=== PATIENT | female | born 1965 | race Caucasian/White ===

== ENCOUNTER → 2018-01-25 16:28 | Outpatient (CLI) | payer BC, SELFPAY ==
--- NOTE | 2018-01-25 | XR_ITS ---
XR ankle LT min 3V HISTORY: ITS.REASON: PAIN IN ANKLE JOINT AND FOOT ORDERING PHYSICIAN: Cayetano Davis MD PATIENT AGE: 52 years COMPARISON: 03/04/2015 FINDINGS: No fracture or dislocation. No lytic or blastic change. There is normal mineralization.. The joint spaces are well-preserved. No significant degenerative/arthritic changes. No erosive changes evident. Incidentally noted is a lucency involving the distal aspect of the first metatarsal medially and may be due to a subarticular cyst or an old lesion from gout having a similar appearance on previous exam IMPRESSION: 1. No acute finding. 2. Small well-circumscribed lucent lesion of the distal first metatarsal medially
== END ==
PROVIDERS: PCP Internal Medicine Adolescent Medicine; Visit Provider Internal Medicine Adolescent Medicine
DX: M25.572 Pain in left ankle and joints of left foot (principal)
CPT/HCPCS: 73610

== ENCOUNTER → 2018-03-28 13:19 | Outpatient (CLI) | payer BC, SELFPAY ==
--- NOTE | 2018-03-28 13:26 | XR_ITS ---
XR foot LT min 3V, XR ankle LT min 3V Ordering Physician: Cayetano Davis MD Patient Age: 53 years: Female HISTORY: ITS.REASON: LT FOOT PAIN, LT ANKLE INSTABILITY TECHNIQUE: Left foot 3 views Left ankle 3 views COMPARISON :01/25/2018 left ankle radiograph 03/04/2015 left foot radiograph MRI of left foot 06/15/2016 ======= LEFT FOOT 3 VIEWS No fracture no acute findings... Mild hallux valgus deformity again noted similar to thousand 15. Small lucent cystic area noted at the mid portion calcaneus on 2014 plain film and subsequent MR studies is again observed and appear stable Metatarsals appear intact otherwise. The toes appear satisfactory. Tarsals unremarkable.. ========= LEFT ANKLE 3 VIEWS Ankle shows no change since prior studies from January 2018 nor February 2015 exam. Ankle mortise well-maintained normal talus intact. Distal tibia and fibula unremarkable. Subtalar region satisfactory on plain film review IMPRESSION: Left foot and ankle appear stable when compared to studies dating back to 2014 No discrete new findings. Joint spaces well-maintained Minor hallux valgus deformity left foot again noted and similar to 2015 Minor observations including the small stable cystic area at the calcaneus again noted
== END ==
PROVIDERS: PCP Internal Medicine Adolescent Medicine; Visit Provider Internal Medicine Adolescent Medicine
DX: M79.672 Pain in left foot (principal); M25.372 Other instability, left ankle
CPT/HCPCS: 73610; 73630

== ENCOUNTER → 2018-04-05 15:24 | Outpatient (CLI) | payer BC, SELFPAY ==
--- NOTE | 2018-04-05 15:28 | XR_ITS ---
XR foot wt bearing RT 3V HISTORY: Right foot pain ITS.REASON: PAIN ORDERING PHYSICIAN: Eloisa Artis DPM PATIENT AGE: 53 years COMPARISON: Left foot same date FINDINGS: There is mild hallux valgus. The tarsal bones metatarsals and phalanges all appear intact the plantar arch is normal and the soft tissues are normal.. The joint spaces are well-preserved. No significant degenerative/arthritic changes. No erosive changes evident. IMPRESSION: Mild hallux valgus otherwise negative right foot
--- NOTE | 2018-04-05 15:28 | XR_ITS ---
XR foot wt bearing LT 3V HISTORY: ITS.REASON: PAIN ORDERING PHYSICIAN: Eloisa Artis DPM PATIENT AGE: 53 years COMPARISON: Right foot same date FINDINGS: No fracture or dislocation. No lytic or blastic change. There is normal mineralization.. There is very mild hallux valgus less than on the right side. The joint spaces are well-preserved. No significant degenerative/arthritic changes. No erosive changes evident. IMPRESSION: Mild hallux valgus otherwise negative left foot
--- NOTE | 2018-04-05 15:28 | XR_ITS ---
XR ankle wt bearing RT min 3V HISTORY: Right ankle pain ITS.REASON: PAIN ORDERING PHYSICIAN: Eloisa Artis DPM PATIENT AGE: 53 years Comparison: FINDINGS: No fracture or dislocation. No lytic or blastic change. There is normal mineralization.. The ankle mortise appears normal.-.. No significant degenerative/arthritic changes. No erosive changes evident. Comparison made to the left ankle same date. IMPRESSION: Negative ankle, no acute finding
--- NOTE | 2018-04-05 15:28 | XR_ITS ---
XR ankle wt bearing LT min 3V Ordering Physician: Eloisa Artis DPM Patient Age: 53 years: Female HISTORY: ITS.REASON: PAIN TECHNIQUE: Weightbearing images 3 views left ankle 3 views right ankle COMPARISON :Left ankle jan 25 2018 also a June 2008 study available left ankle ======= 3 VIEWS LEFT ANKLE weightbearing Weightbearing images of the left ankle demonstrate the ankle mortise to be intactWell-maintained,. Dome talus appears satisfactory. Medial, lateral and posterior malleolus intact. No significant soft tissue swelling or findings. Perhaps mild Pes planus on lateral view Compared to the January 25, 2018 left ankle I see no significant new findings 3 VIEWS RIGHT ANKLE weightbearing Weightbearing images of right ankle demonstrate the ankle mortise to be intactWell-maintained,. Dome talus appears satisfactory. Medial, lateral and posterior malleolus intact. No significant soft tissue swelling or findings. Perhaps mild Pes planus on lateral view Both right and left ankle demonstrates some very mild sclerosis along the medial margin of the distal fibula where it articulates with the lateral aspect talus.. Subtle finding unchanged since studies of the left ankle dating back to 2007 IMPRESSION: Right and left ankle appear intact
== END ==
PROVIDERS: PCP Internal Medicine Adolescent Medicine; Visit Provider Podiatrist
DX: M79.673 Pain in unspecified foot (principal); M76.822 Posterior tibial tendinitis, left leg
CPT/HCPCS: 73610; 73630

== ENCOUNTER → 2018-07-27 14:39 | Outpatient (CLI) | payer BC, SELFPAY ==
--- NOTE | 2018-07-27 14:41 | MR_ITS ---
MR ankle LT wo/w con HISTORY: Persistent left ankle pain and swelling following injury ITS.REASON: left ankle pain/instability ORDERING PHYSICIAN: Eloisa Artis DPM PATIENT AGE: 53 years Comparison: 06/15/2016 what angle of mediastinal and hilar TECHNIQUE: Standard multiplanar multiecho sequences are performed without and with gadolinium enhancement. FINDINGS: There is a small cyst once again noted just beneath the angle of Gissane of the calcaneus measuring 10 mm. A small amount of edema is present along the superior and posterior aspect of the cyst. This may represent a ganglion cyst of the calcaneus. There is some increased T2 signal involving the posterior and superior aspect of the calcaneus near the Achilles insertion and may represent a an additional small cyst. This is slightly larger compared to the previous exam measuring approximately 6 mm previously at 3 mm. Previously fluid was noted at the lateral aspect of the subtalar joint. This has improved. Only a small amount of fluid signal remains at this area. There is fluid signal along the anterior aspect and lateral aspect of the ankle joint along the anterolateral aspect of the tibia and posterior to the extensor digitorum longus. The anterior tibiofibular and posterior tibiofibular ligaments appear intact as does the anterior talofibular ligament. The fibers of the posterior talofibular ligament are less well demonstrated than before with some fluid signal in this area's consistent with partial tear and/or sprain of the posterior talofibular ligament. There is some increased signal intensity of the peroneal longus and brevis tendons distally which may be due to tendinopathy/tendinosis as previously described versus magic angle artifact. Fluid signal intensity once again noted at the extensor digitorum longus and extensor hallucis longus tendons with questionable tear of the extensor digitorum longus. As not significant changed and requires clinical correlation. The deltoid ligament has an unremarkable appearance as does the posterior tibialis. The talar dome appears intact. IMPRESSION: 1. Suspected tear of the posterior talofibular ligament 2. Calcaneal ganglionic cyst once again noted with some decrease in the edema about the cyst. New cystic changes are present along the posterior aspect of the calcaneus near the insertion of the Achilles tendon 3. The fluid along the lateral aspect of the subtalar joint has decreased in amount from the previous exam. 4. Suspect tendinopathy of the fibularis tendons and extensor tendons as described above
== END ==
PROVIDERS: PCP Internal Medicine Adolescent Medicine; Visit Provider Podiatrist
DX: M25.372 Other instability, left ankle (principal)
CPT/HCPCS: 73223; 73721; 73723; A9576

== ENCOUNTER → 2018-09-13 11:11 | Outpatient (CLI) | payer BC, SELFPAY ==
--- NOTE | 2018-09-13 11:35 | XR_ITS ---
XR chest 2V HISTORY: ITS.REASON: SINUSITIS ORDERING PHYSICIAN: Eloisa Artis DPM PATIENT AGE: 53 years COMPARISON: None FINDINGS: The cardiomediastinal silhouette and pulmonary vascularity are within normal limits. No lobar consolidation or collapse is evident. There is increased soft tissue density in the retrocardiac region centrally and may be related to a hiatal hernia. No obvious gas evident within this region however. Follow-up is suggested to confirm stability. IMPRESSION: Retrocardiac density which may be due to a hiatal hernia may be confirmed with CT. Differential diagnosis includes aortic aneurysm or mass.
[2018-09-13 12:08] LABS: Basophils # 0.1 K/mm3 (0-0.2); Basophils % 1.4 % (0.1-2.0); Eosinophils # 0.2 K/mm3 (0.0-0.4); Hematocrit 48.8 % (37.0-47.0); Hemoglobin 15.7 g/dL (12.2-16.2); Lymphocytes % 32.3 % (10-50); Mean Corpuscular HGB Conc 32.3 g/dL (31.8-35.4); Mean Corpuscular Hemoglobin 29.5 pg (27.0-31.2); Mean Corpuscular Volume 91.4 fl (81-99); Mean Platelet Volume 7.4 fl (7.4-10.4); Monocytes # 0.3 K/mm3 (0.1-1.0); Monocytes % 5.6 % (1.7-9.3); Neutrophils # 3.5 K/mm3 (1.8-7.8); Neutrophils % 57.7 % (37.0-80.0); Platelet Count 220 K/mm3 (142-424); Red Blood Count 5.34 M/mm3 (4.20-5.40); Red Cell Distribution Width 13.1 % (11.5-17.5); White Blood Count 6.1 K/mm3 (4.8-10.8)
[2018-09-13 13:02] LABS: Alanine Aminotransferase 24 U/L (12-78); Albumin Level 3.8 gm/dL (3.4-5.0); Albumin/Globulin Ratio 1.1 (1.1-1.8); Alkaline Phosphatase 74 U/L (46-116); Anion Gap 13.6 mEq/L (5-15); Aspartate Amino Transferase 21 U/L (15-37); Bilirubin,Total 0.4 mg/dL (0.2-1.0); Blood Urea Nitrogen 13 mg/dL (7-18); Calcium 9.1 mg/dL (8.5-10.1); Carbon Dioxide 29 mmol/L (21.0-32.0); Chloride 103 mmol/L (98-107); Estimated Glomerular Filt Rate 88 ml/min (>60); GFR (African American) 106 ML/MIN (>60); Globulin 3.4 gm/dl (1.3-3.2); Glucose 86 mg/dL (74-106); Potassium 4.6 mmoL/L (3.5-5.1); Sodium 141 mmol/L (136-145); Total Protein,Serum 7.2 gm/dL (6.4-8.2)
[2018-09-14 14:47] LABS: Vitamin D 25 Hydroxy 24.3 ng/mL (30.0-100.0)
== END ==
PROVIDERS: PCP Internal Medicine Adolescent Medicine; Visit Provider Podiatrist
DX: Z01.818 Encounter for other preprocedural examination (principal); M25.372 Other instability, left ankle
CPT/HCPCS: 36415; 71046; 80053; 82652; 85025; 93005

== ENCOUNTER → 2018-09-29 14:31 | Outpatient (CLI) | payer BC, SELFPAY ==
--- NOTE | 2018-09-29 14:50 | CT_ITS ---
CT angio chest Ordering Physician: Cayetano Davis MD Patient Age: 53 years: Female HISTORY: ITS.REASON: MASS IN CHESTABNORMAL FINDINGS ON CXR TECHNIQUE: .: Helical CT scanning performed following bolus administration of 100 cc Isovue-370 followed x 40 mL normal saline.. Thickened Axial as well as thick slab MIPP sagittal and coronal reconstructions performed on CT workstation. All CT scans at this facility used one or more dose reduction techniques , viz: automatic exposure control, ma/Kv adjustment per patient's size, (including targeted exam where dose matched to the indication; i.e. head); or iterative reconstruction technique COMPARISON :09/13/2018 PA and lateral CXR, FINDINGS MEDIASTINUM: The density noted on recent chest film reflects a large hiatal hernia. It measures over 7cm in diameter with up to 20-25% of the proximal stomach passing through the hiatal hernia into the lower chest. It projects slightly to the left. .. There is upper normal wall thickness at the distal esophagus no significant mass or adenopathy otherwise evident at mediastinum or chest.. Benign-appearing 11 mm x 7.5 mm precarinal node just above the caryl. No hilar adenopathy or mass. Heart. Normal size. No pericardial effusion or significant findings Vasculature.: Thoracic aorta. Normal . Good enhancement of normal appearing aorta & pulmonary artery. Normal ascending aorta measuring 2.9 cm with aortic root normal caliber... Normal aortic arch and descending aorta. Normal appearance to the renal arteries SMA and celiac Pulmonary artery unremarkable.. Pulsation artifact accounts for the appearance of proximal main pulmonary artery LUNGS: no active disease. No significant lesions. Apical pleural parenchymal scarring on left. . No pneumonia. No pleural effusions. Airways appear satisfactory. Tiny Bochdalek hernia posteriorly marginal left hemidiaphragm Osseous structures. Intact. T-spine with only mild dextrocurvature mid T-spine. No significant findings. Chest wall and ribs unremarkable. Sternal unremarkable. .. Inhomogeneous lower portion of the thyroid most likely reflects streak artifact although difficult to exclude 12 mm nodule at the lower pole right lobe. Consider thyroid ultrasound. UPPERMOST ABDOMEN. Adrenals unremarkable. Liver. Modest size. No focal lesions. Portal vein is upper normal caliber measuring 15 a 16 mm with generous portal venous confluence partially imaged I believe accounts the generous structure posterior to the head of the pancreas. Sagittal reconstruction views support such. Also with this there is a slightly generous caliber superior mesenteric vein. It upper abdominal symptoms this may warrant investigation... Spleen does not appear to be significantly enlarged Cholecystectomy. ...IMPRESSION...... 1. Large sliding hiatal hernia-up to 7 cm transverse. Includes 20 -25% proximal stomach . This accounts for the retrocardiac density seen on recent CXR. 2. ... No active disease in the chest. No lung lesions.. No pleural effusion or findings ... Normal Aorta. Heart normal size withNormal-appearing pulmonary artery. 3.. Incidental observations :... Upper abdomen. Upper normal caliber portal vein. Generous Portal confluence most likely accounts for appearance posterior to the head of pancreas. If upper abdominal abdomen pain/symptoms this may warrant follow-up CT abdomen or ultrasound.
== END ==
PROVIDERS: PCP Internal Medicine Adolescent Medicine; Visit Provider Internal Medicine Adolescent Medicine
DX: R22.2 Localized swelling, mass and lump, trunk (principal); R93.89 Abnormal findings on diagnostic imaging of other specified body structures
CPT/HCPCS: 71275; Q9967

== ENCOUNTER → 2019-03-14 10:44 | Outpatient (CLI) | payer BC, SELFPAY ==
--- NOTE | 2019-03-14 10:49 | MR_ITS ---
MR head/brain wo con HISTORY: Follow-up meningioma ITS.REASON: MENINGIOMA ORDERING PHYSICIAN: Cayetano Davis MD PATIENT AGE: 54 years Comparison: 12/18/2015 TECHNIQUE: Standard multiplanar multiecho sequences are performed without contrast. FINDINGS: No midline shift, mass effect, intracranial hemorrhage, or hydrocephalus. The cerebellopontine angles, cerebellum, and brainstem have an unremarkable appearance. No evidence of acute infarction. 13 mm area of isointense T1 and T2 signal noted in the medial aspect of the right frontal lobe which is extra-axial in nature much better demonstrated on the previous enhanced exam is once again noted and is not significant change. No hydrocephalus. No mass effect or restricted diffusion. There is normal hough-white matter differentiation. There are only a few T2 white matter hyperintensities noted not significant changed, nonspecific. The pituitary, optic chiasm, corpus callosum, and craniocervical junction have an unremarkable appearance. There is a retention cyst in right maxillary sinus and 2 cm. No mastoid effusion or sinus air-fluid level. IMPRESSION: Stable MRI appearance of the brain. No change in the right frontal extra-axial lesion consistent with a meningioma
== END ==
PROVIDERS: PCP Internal Medicine Adolescent Medicine; Visit Provider Internal Medicine Adolescent Medicine
DX: D32.9 Benign neoplasm of meninges, unspecified (principal)
CPT/HCPCS: 70551

== ENCOUNTER 2019-09-11 16:55 | Outpatient (RCR) | payer BC, SELFPAY | END 2019-09-11 17:05 | disposition home or self-care (01) | LOC: PT 16:55 | PROVIDERS: Visit Provider Internal Medicine Adolescent Medicine | DX: M79.672 Pain in left foot (principal) | CPT/HCPCS: 97760 ==

== ENCOUNTER → 2019-09-11 17:19 | Outpatient (CLI) | payer BC, SELFPAY ==
--- NOTE | 2019-09-11 17:35 | XR_ITS ---
PROCEDURE: XR FOOT LT MIN 3V Patient Age:54Y CLINICAL INDICATION: LEFT FOOT PAIN. Injury swelling bruising fell 2 hours prior this study COMPARISON: [id number] XR foot wt bearing LT 3V from 04/05/2018 FINDINGS: Three views of the left foot, nonweightbearing performed There is fracture distal 5th metatarsal, involving the distal shaft/metaphysis. This fracture mildly comminuted but there is good apposition and and good alignment overall of the fracture fragments.. The the 4th and other metatarsals intact. The toes are intact. The bones are well mineralized joint spaces well maintained The tarsals unremarkable. IMPRESSION: Acute fracture distal 5th metatarsal Dictated by: Mateusz Dillard MD 09/12/2019 15:25 Electronically signed by Mateusz Dillard MD in [place] 09/12/2019 15:25
== END ==
PROVIDERS: PCP Internal Medicine Adolescent Medicine; Visit Provider Internal Medicine Adolescent Medicine
DX: M79.672 Pain in left foot (principal)
CPT/HCPCS: 73630

== ENCOUNTER → 2019-09-20 11:45 | Outpatient (CLI) | payer BC, SELFPAY ==
--- NOTE | 2019-09-20 11:49 | XR_ITS ---
PROCEDURE: XR ANKLE WT BEARING LT MIN 3V CLINICAL INDICATION: FX 5TH TOE Follow-up fracture, injury with pain COMPARISON: ANKCMLT XR ankle LT min 3V from 01/25/2018 ANKCMLT XR ankle LT min 3V from 03/28/2018 [id number] XR ankle wt bearing RT min 3V from 04/05/2018 FINDINGS: No fracture, dislocation, lytic change, or blastic change evident. No significant degenerative change. Overlying garment artifact IMPRESSION: No acute findings. Dictated by: Sp Swanson MD 09/20/2019 13:17 Electronically signed by Sp Swanson MD in [place] 09/20/2019 13:17
== END ==
PROVIDERS: PCP Internal Medicine Adolescent Medicine; Visit Provider Podiatrist
DX: S92.355A Nondisplaced fracture of fifth metatarsal bone, left foot, initial encounter for closed fracture (principal)
CPT/HCPCS: 73610

== ENCOUNTER → 2019-09-28 08:23 | Outpatient (CLI) | payer BC, SELFPAY ==
--- NOTE | 2019-09-28 08:23 | MR_ITS ---
PROCEDURE: MR ANKLE LT WO/W CON CLINICAL INDICATION: pain, tendon pathology Posttraumatic pain, 5th metatarsal fracture, ankle instability, posterior tibial tendonitis COMPARISON: LEAJW/OLT MRI-LOW EXT ANY JOINT W/O-LT from 06/15/2016 XR FOOT LT MIN 3V from 09/11/2019 XR ANKLE WT BEARING LT MIN 3V from 09/20/2019 TECHNIQUE: Routine multiplanar multi echo sequences are performed without and with gadolinium enhancement. FINDINGS: No acute fracture or dislocation is evident. There is once again noted a well-circumscribed cystic lesion in the mid aspect of the calcaneus superiorly in the subcortical region of the calcaneus at the angle of Gissane. This is not significantly changed. There is a small amount fluid along the posterior aspect of the posterior talocalcaneal joint and along the anterior lateral aspect of the talus. Previously described edematous changes in the region of the sinus tarsi are somewhat less apparent. There is a some subcutaneous edema along the anterior the lateral aspect of the ankle at the anterior talus. The tibiofibular ligaments appear intact. The anterior talofibular ligament appears discontinuous consistent with a tear. The posterior talofibular ligament fibers are somewhat sparse and could be partially torn.. The deltoid ligament also appears intact. The posterior tibial tendon, flexor hallucis longus, placed clear digitorum longus, Achilles tendon, and peroneal tendons appear intact. There is a small amount fluid along posterior aspect of the peroneal tendons and at the posterior tibialis tendon suggesting tendinitis/tendinopathy. There is a small amount of fluid along the extensor digitorum longus tendons. No obvious fracture. IMPRESSION: 1. No change in the well-circumscribed cystic lesion of the calcaneus at the angle of Gissane 2. There does appear to be tear of the anterior talofibular ligament which has developed since the previous exam. There may be partial tear of the posterior talofibular ligament. 3. There is edema along the anterior lateral aspect of the ankle at the talus involving the subcutaneous soft tissues with small amount fluid in the extensor digitorum longus tendons which could be related underlying tendinopathy/tendinitis. 4. Fluid is also present in the tendon sheath at the peroneal tendons and the posterior tibialis tendon suggesting tendinopathy/tendinitis. 5. There is also fluid posterior to the posterior talocalcaneal joint consistent with bursitis Dictated by: Sp Swanson MD 09/29/2019 05:57 Electronically signed by Sp Swanson MD in [place] 09/29/2019 05:57
== END ==
PROVIDERS: PCP Internal Medicine Adolescent Medicine; Visit Provider Podiatrist
DX: M25.372 Other instability, left ankle (principal); M76.822 Posterior tibial tendinitis, left leg; S92.353A Displaced fracture of fifth metatarsal bone, unspecified foot, initial encounter for closed fracture
CPT/HCPCS: 73723; A9576

== ENCOUNTER → 2019-10-01 15:29 | Outpatient (CLI) | payer BC, SELFPAY | PROVIDERS: PCP Internal Medicine Adolescent Medicine; Visit Provider Podiatrist | DX: Z01.818 Encounter for other preprocedural examination (principal); S92.355A Nondisplaced fracture of fifth metatarsal bone, left foot, initial encounter for closed fracture ==

== ENCOUNTER → 2019-10-06 09:33 | Outpatient (CLI) | payer BC, SELFPAY ==
--- NOTE | 2019-10-06 09:42 | XR_ITS ---
PROCEDURE: XR CHEST 2V CLINICAL HISTORY: PRE-OP COMPARISON: CXR2V XR chest 2V from 09/13/[address] angio chest from 09/29/2018 FINDINGS: The cardiomediastinal silhouette and pulmonary vascularity are within normal limits. Note is made of a partially aerated hiatal hernia behind the heart which projects to the left of midline. The lungs are clear without infiltrates, suspicious nodules, or pleural effusions. No acute bony abnormalities. IMPRESSION: No acute findings. Dictated by: Omari Rubi 10/06/2019 11:41 Electronically signed by Omari Rubi in [place] 10/06/2019 11:41
--- NOTE | 2019-10-06 10:16 | ECG_ITS ---
APPROVED REPORT Exam: Resting ECG HR:82 bpm ECG Measurements Heart Rate 82 AXES [place] 164 P 15 QRSd 84 QRS -35 QT 402 T 35 QTc 469 <Conclusion> Normal sinus rhythm Prolonged QT Ow normal ECG Electronically signed by : Cayetano Davis, 10/06/2019 19:04:22
[2019-10-06 11:28] LABS: Basophils # 0.1 K/mm3 (0-0.2); Basophils % 1.1 % (0.1-2.0); Eosinophils # 0.2 K/mm3 (0.0-0.4); Eosinophils % 3.3 % (0.1-12.0); Hematocrit 43.9 % (37.0-47.0); Hemoglobin 14.9 g/dL (12.2-16.2); Lymphocytes # 2.3 K/mm3 (0.7-4.5); Lymphocytes % 36.7 % (10-50); Mean Corpuscular Volume 88.2 fl (81-99); Mean Platelet Volume 7.6 fl (7.4-10.4); Monocytes # 0.4 K/mm3 (0.1-1.0); Monocytes % 6.3 % (1.7-9.3); Neutrophils # 3.3 K/mm3 (1.8-7.8); Neutrophils % 52.7 % (37.0-80.0); Platelet Count 211 K/mm3 (142-424); Red Blood Count 4.98 M/mm3 (4.20-5.40); White Blood Count 6.2 K/mm3 (4.8-10.8)
[2019-10-06 13:08] LABS: Alanine Aminotransferase 18 U/L (12-78); Albumin Level 3.6 gm/dL (3.4-5.0); Albumin/Globulin Ratio 1.2 (1.1-1.8); Alkaline Phosphatase 71 U/L (46-116); Anion Gap 11.1 mEq/L (5-15); Aspartate Amino Transferase 21 U/L (15-37); Bilirubin,Total 0.5 mg/dL (0.2-1.0); Blood Urea Nitrogen 8 mg/dL (7-18); Calcium 8.8 mg/dL (8.5-10.1); Carbon Dioxide 30 mmol/L (21.0-32.0); Chloride 107 mmol/L (98-107); Creatinine,Serum 0.77 mg/dL (0.55-1.02); Estimated Glomerular Filt Rate 78 ml/min (>60); GFR (African American) 95 ML/MIN (>60); Globulin 2.9 gm/dl (1.3-3.2); Glucose 79 mg/dL (74-106); Potassium 4.1 mmoL/L (3.5-5.1); Sodium 144 mmol/L (136-145); Total Protein,Serum 6.5 gm/dL (6.4-8.2)
[2019-10-10 10:45] LABS: Vitamin D 25 Hydroxy 25.5 ng/mL (30.0-100.0)
== END ==
PROVIDERS: PCP Internal Medicine Adolescent Medicine; Visit Provider Podiatrist
DX: Z01.818 Encounter for other preprocedural examination (principal); S92.355A Nondisplaced fracture of fifth metatarsal bone, left foot, initial encounter for closed fracture; E55.9 Vitamin D deficiency, unspecified
CPT/HCPCS: 36415; 71046; 80053; 82652; 85025; 93005

== ENCOUNTER → 2019-10-29 11:13 | Outpatient (CLI) | payer BC, SELFPAY ==
--- NOTE | 2019-10-29 11:17 | XR_ITS ---
PROCEDURE: XR FOOT WT BEARING LT 3V CLINICAL INDICATION: pain COMPARISON: [id number] XR foot wt bearing LT 3V from 04/05/2018 XR FOOT LT MIN 3V from 09/11/2019 XR FOOT LT MIN 3V from 10/12/2019 XR FOOT LT 2V from 10/12/2019 FINDINGS: Postsurgical changes seen involving distal 5th metatarsal. The posterior splint obscures fine bone detail. There is no convincing evidence of an acute displaced fracture. A 9 millimeter sclerotic focus involving the anterior superior calcaneus is not significantly changed from the previous exam. Vascular calcifications are noted. IMPRESSION: Limited exam no acute findings. Dictated by: Omari Rubi 10/29/2019 15:18 Electronically signed by Omari Rubi in [place] 10/29/2019 15:18
--- NOTE | 2019-10-29 11:17 | XR_ITS ---
PROCEDURE: XR ANKLE WT BEARING LT MIN 3V CLINICAL INDICATION: pain COMPARISON: [id number] XR ankle wt bearing LT min 3V from 04/05/2018 [id number] XR ankle wt bearing RT min 3V from 04/05/2018 XR ANKLE WT BEARING LT MIN 3V from 09/20/2019 FINDINGS: Three views with posterior splint demonstrate metallic densities involving the distal tibia and fibula and incidentally the 5th metatarsal. There is mild anterior subluxation of the talus in relation to distal tibia at the tibiotalar joint. No acute fracture or dislocation is evident. There is a more conspicuous 9 millimeter sclerotic focus involving the anterior calcaneus which could represent osteoblastic activity associated with healed stress fracture. IMPRESSION: No acute findings. Dictated by: Omari Rubi 10/29/2019 15:13 Electronically signed by Omari Rubi in [place] 10/29/2019 15:13
== END ==
PROVIDERS: PCP Internal Medicine Adolescent Medicine; Visit Provider Podiatrist
DX: Z98.890 Other specified postprocedural states (principal); M25.572 Pain in left ankle and joints of left foot; M25.571 Pain in right ankle and joints of right foot
CPT/HCPCS: 73610; 73630

== ENCOUNTER → 2019-11-22 13:34 | Outpatient (CLI) | payer BC, SELFPAY ==
--- NOTE | 2019-11-22 13:38 | XR_ITS ---
PROCEDURE: XR FOOT WT BEARING LT 3V CLINICAL INDICATION: post-op Follow-up surgery/ORIF COMPARISON: XR FOOT LT MIN 3V from 09/11/2019 XR FOOT LT MIN 3V from 10/12/2019 XR FOOT LT 2V from 10/12/2019 XR FOOT WT BEARING LT 3V from 10/29/2019 FINDINGS: There is a dorsal bone plate at the distal aspect of the 5th metatarsal stabilizing fracture at this area. There is some developing callus formation noted. The splint has been removed. There is good alignment. There has been prior 0 RI F of the distal tib fib as well. IMPRESSION: Status post ORIF 5th metatarsal fracture with good alignment Dictated by: Sp Swanson MD 11/22/2019 15:14 Electronically signed by Sp Swanson MD in [facility] 11/22/2019 15:14
== END ==
PROVIDERS: PCP Internal Medicine Adolescent Medicine; Visit Provider Podiatrist
DX: Z98.890 Other specified postprocedural states (principal); S92.355D Nondisplaced fracture of fifth metatarsal bone, left foot, subsequent encounter for fracture with routine healing
CPT/HCPCS: 73630

== ENCOUNTER → 2019-12-11 14:00 | Outpatient (CLI) | payer BC, SELFPAY ==
--- NOTE | 2019-12-11 14:14 | XR_ITS ---
PROCEDURE: XR FOOT WT BEARING LT 3V CLINICAL INDICATION: postop views COMPARISON: XR FOOT LT MIN 3V from 10/12/2019 XR FOOT LT 2V from 10/12/2019 XR FOOT WT BEARING LT 3V from 10/29/2019 XR FOOT WT BEARING LT 3V from 11/22/2019 FINDINGS: Images were obtained with simulated weight-bearing. Postsurgical changes are noted with metallic fixation plate and reduction screws involving distal 5th metatarsal. Metallic fixation plate with reduction screws is also seen in the distal fibula. The 2 separate metallic densities are also seen overlying the distal medial tibia. There is near anatomical positioning. No acute fracture or dislocation is apparent. There is marked demineralization likely due to disuse. Sclerotic focus is seen in the anterior superior calcaneus inferior to the subtalar joint unchanged probably degenerative.. IMPRESSION: Postoperative changes as described with near anatomical positioning of bony elements. No acute bone pathology. Marked osteopenia. Dictated by: Omari Rubi 12/11/2019 15:08 Electronically signed by Omari Rubi in [place] 12/11/2019 15:08
== END ==
PROVIDERS: PCP Internal Medicine Adolescent Medicine; Visit Provider Podiatrist
DX: Z98.890 Other specified postprocedural states (principal); S92.355D Nondisplaced fracture of fifth metatarsal bone, left foot, subsequent encounter for fracture with routine healing
CPT/HCPCS: 73630

== ENCOUNTER 2019-12-14 11:00 | Outpatient (RCR) | payer BC, SELFPAY ==
--- NOTE | 2019-12-03 15:40 | [facility].PTOPEV ---
PT Outpatient Evaluation Rehab PT Outpatient Evaluation Start: 12/03/19 14:49 Freq: Status: Active Protocol: Document 12/03/19 14:49 ALICE (Rec: 12/03/19 15:40 [email or web address] [id number]) Electronically Signed By Marito Cavazos, PT 12/03/19 14:49 Outpatient Therapy Subjective History Subjective History Pt. is a 54 year old female who presents to outpatient PT clinic with reports of constant and subactue L ankle/ft. P! s/p L ankle/ft. ORIF for a nondisplaced fx. of 5th metatarsal bone on 10/12/2019. Pt. reports tripping and falling while walking to her vehicle on 09/11/19. Pt. reports donning a L ft./ankle cast prior to surgical date. Recent diagnostic imaging positive for s/p ORIF 5th metatarsal fracture with good alignment. Pt. reports current PWB of 25% body weight in LLE until 12/07/19 where I can begin to put more weight through it. Pt. reports continuing to josette CAM bt. walker until she goes back to the [facility]. Pt. RTMD 12/11/19. Current medications include Meloxicam, Emgality injection, Imitrex, and Dexilant. PMH includes history of MAXWELL's, Cholecystectomy, section, and Breast Biopsy procedures. Chief Complaint Pain,Swelling Symptom Type Ache,Sharp,Dull,Numbness Symptoms Relieved By Rest/Positioning,Ice,Brace/ Support Symptoms Aggravated By Sitting,Standing,Bending/ Stooping,Physical Activity, Twisting,Walking,Lifting Prior Functional Limitations None Current Functional Limitations Lifting,Housework,Dressing, Sleeping,Standing,Sitting, Squatting,Recreation Activity, Walking,Stairs,Balance,Bending /Stooping Symptom Description Constant but Variable Level of pain today (0-10) 1 Pain scale - at its best (0-10) 1 Pain scale -
== END 2020-01-09 10:25 | disposition home or self-care (01) ==
LOC: PT.CARL 11:00
PROVIDERS: PCP Internal Medicine Adolescent Medicine; Visit Provider Podiatrist
DX: S92.355D Nondisplaced fracture of fifth metatarsal bone, left foot, subsequent encounter for fracture with routine healing (principal); Z98.890 Other specified postprocedural states
CPT/HCPCS: 97010; 97014; 97110; 97116; 97163; G0283